=== PATIENT | male | born 1980 | race Caucasian/White ===

== ENCOUNTER 2023-01-11 12:54 | Emergency (ER) | payer BC ==
[2023-01-11] MEDS ORDERED: Lidocaine 1% with EPINEPHrine 1:100,000 20 ML MDV INJECT ONE (13:21)
[2023-01-11] MEDS ORDERED: Diphtheria,Pertussis(Acell),Tetanus Vaccine 0.5 ML Syringe IM ONE (13:22)
[2023-01-11] MEDS ORDERED: Lidocaine 1% with EPINEPHrine 1:100,000 50 ML MDV SUBCUT ONE (13:24)
[2023-01-11] MEDS ORDERED: Bacitracin Oint 1 GM U/D Packet TOP ONE (13:36)
== END 2023-01-11 13:35 | disposition home or self-care (01) ==
LOC: LB.ED 12:54
DX: S60.451A Superficial foreign body of left index finger, initial encounter (principal); Z88.0 Allergy status to penicillin; Z23 Encounter for immunization; W45.8XXA Other foreign body or object entering through skin, initial encounter
CPT/HCPCS: 90471; 90715; 99283-25